=== PATIENT | female | born 1980 | race Caucasian/White ===

== ENCOUNTER 2024-09-08 13:53 | Emergency (ER) | payer BC ==
[~2024-09-08] VITALS: Ht 162.5 cm; Wt 72.6 kg
[~2024-09-08 13:53] MED LIST: AMOXICILLIN500 MG PO; ULTRAM50 MG PO
[2024-09-08 14:39] LABS: BASO % 0.2 % (0.0-1.0); EOS % 0.1 % (1.0-4.0); HEMATOCRIT 38.9 % (37.0-47.0); MEAN CELL VOLUME 79.6 fl (81.0-99.0); MEAN CORPUSCULAR HGB 24.5 pg (27.0-31.0); MEAN CORPUSCULAR HGB CONC 30.8 g/dl (33.0-37.0); MEAN PLATELET VOLUME 11.3 fl (9.6-12.3); MONO # 0.9 10*3/uL (0.1-1.0); MONO % 6.4 % (3.0-9.0); NEUT # 10.8 10*3/uL (2.3-7.9); NEUT % 78.5 % (47.0-73.0); PLATELET COUNT AUTOMATED 161 10*3/uL (130-400); RED BLOOD COUNT 4.89 10*6/uL (4.10-5.10); RED CELL DISTRI WIDTH 22.7 % (0-14.5); WHITE BLOOD COUNT 13.7 10*3/uL (4.8-10.8)
[2024-09-08 15:00] LABS: ALKALINE PHOSPHATASE 275 U/L (46-116); CHLORIDE 100 mmol/L (98-107); LIPASE 160 U/L (12-53); POTASSIUM 3.2 mmol/L (3.4-5.1); SGPT/ALT 38 U/L (5-49); TOTAL PROTEIN 7.3 gm/dL (6.0-8.0)
[2024-09-08 15:01] LABS: BUN < 5 mg/dl (9-23)
[2024-09-08] MEDS ORDERED: POTASSIUM CHLORIDE 20 MEQ TAB PO ONE (15:30)
[2024-09-08 15:32] LABS: BILIRUBIN Negative (Negative); BLOOD 3+ (Negative); CLARITY Clear (Clear); COLOR Yellow (Yellow); GLUCOSE Negative (Negative); KETONE Negative (Negative); LEUKO ESTERASE Negative (Negative); NITRITE Negative (Negative); SPECIFIC GRAVITY <= 1.005 (1.001-1.030)
[2024-09-08] MEDS ORDERED: HYDROCODONE-AC1 EAC1 PO (15:46)
[2024-09-08] MEDS ORDERED: Ondansetron4 MG PO (15:46)
[2024-09-08 15:48] LABS: BACTERIA 1+; WBC 0-2 wbc/hpf (0-5)
== END 2024-09-08 15:58 | disposition home or self-care (01) ==
LOC: ED 13:53
PROVIDERS: Physician Assistant Medical
DX: K85.90 Acute pancreatitis without necrosis or infection, unspecified (principal); R19.7 Diarrhea, unspecified; R11.2 Nausea with vomiting, unspecified; Z98.890 Other specified postprocedural states